=== PATIENT | male | born 1980 | race American Indian/Alaskan Native ===

== ENCOUNTER 2021-03-11 00:21 | Emergency (ER) | payer OTHER ==
[2021-03-11] MEDS ORDERED: Sodium Chloride 0.9% 1,000 ML IV ONE (00:31)
[2021-03-11] MEDS ORDERED: Famotidine 20 MG/2 ML SDV IVPUSH ONE (00:31)
[2021-03-11] MEDS ORDERED: diphenhydrAMINE 50 MG/ML SDV IVPUSH ONE (00:31)
[2021-03-11] MEDS ORDERED: methylPREDNISolone Sodium Succinate 125 MG/2 ML SDV IVPUSH ONE (00:31)
--- NOTE | 2021-03-11 00:46 | EDM.PDOC ---
ED HPI GENERAL MEDICAL PROBLEM - General Stated Complaint: ALERGIC REACTION. ALL OVER THIS BODY Time Seen by Provider: 03/11/21 00:25 Source of Information: Reports: Patient, Family, RN, RN Notes Reviewed History Limitations: Reports: Intoxication - History of Present Illness INITIAL COMMENTS - FREE TEXT/NARRATIVE: Patient is a 40-year-old male who presents to ER with his per POV with complaint of allergic reaction. states patient awoke her a few minutes before midnight stating he was having a rash all over his body. Patient has hives on the extremities upper and lower as well as the abdomen and neck. 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 Also gets "tingly" when he eats male from time to time. Patient did eat macaroni salad today. Denies any drug allergies. Denies shortness of breath, tightness of chest, feeling of throat closing. Patient states he did take 25 mg of children's Benadryl at home because that is what they had. Patient states he feels things are improving. Patient oxygen saturation was 85% on room air upon arrival to the ER. Patient denies smoking cigarettes. Admits to drinking a sixpack of beer on a daily basis. Onset: Today, Sudden - Related Data Allergies Allergy/AdvReac Type Severity Reaction Status Date / Time egg Allergy Anaphylactic Verified 03/11/21 00:55 Shock Home Meds: Home Meds diphenhydrAMINE HCL [Benadryl Allergy] 03/11/21 [History] ED ROS ALLERGIC REACTION - Review of Systems Review Of Systems: Comprehensive ROS is negative, except as noted in HPI. ED EXAM GENERAL NO PERIP PULSE - Physical Exam Exam: See Below Exam Limited By: Intoxication General Appearance: Alert, WD/WN, Mild Distress Eye Exam: Bilateral Eye: EOMI, Normal Inspection Ears: Normal External Exam, Hearing Grossly Normal Nose: Normal Inspection Throat/Mouth: Normal Inspection, Normal Lips, Normal Teeth, Normal Gums, Normal Oropharynx, Normal Voice, No Airway Compromise Head: Atraumatic, Normocephalic Neck: Normal Inspection, Supple, Non-Tender, Full Range of Motion Respiratory/Chest: No Respiratory Distress, Lungs Clear, Normal Breath Sounds, No Accessory Muscle Use, Chest Non-Tender Cardiovascular: Normal Peripheral Pulses, Regular Rate, Rhythm, No Edema, No Gallop, No JVD, No Murmur, No Rub GI/Abdominal: Normal Bowel Sounds, Soft, Non-Tender, No Organomegaly, No Distention, No Abnormal Bruit, No Mass, Pelvis Stable (Male) Exam: Deferred Rectal (Males) Exam: Deferred Back Exam: Normal Inspection, Full Range of Motion, NT Extremities: Normal Inspection, Normal Range of Motion, Non-Tender, Normal Capillary Refill, No Pedal Edema Neurological: Alert, Oriented, Normal Cognition, No Motor/Sensory Deficits Psychiatric: Normal Affect, Normal Mood Skin Exam: Warm, Dry, Other (Hives on the upper and lower extremities, abdomen, neck) Lymphatic: No Adenopathy Course - Vital Signs Last Recorded V/S: Last Vital Signs Temp 96.9 F 03/11/21 00:25 Pulse 75 03/11/21 01:18 Resp 16 03/11/21 01:18 BP 145/95 H 03/11/21 01:18 Pulse Ox 100 03/11/21 01:18 - Orders/Labs/Meds Labs: Laboratory Tests 03/11/21 03/11/21 Range/Units 00:35 00:35 WBC 9.6 (5.0-10.0) 10^3/uL RBC 5.15 (4.6-6.2) 10^6/uL Hgb 17.5 (14.0-18.0) g/dL Hct 49.7 (40.0-54.0) % MCV 96.5 (80-100) fL MCH 34.0 (27.0-34.0) pg MCHC 35.2 H (33.0-35.0) g/dL Plt Count 302 (150-450) 10^3/uL Neut % (Auto) 43.2 (42.2-75.2) % Lymph % (Auto) 43.1 (20.5-50.1) % [place] % (Auto) 11.2 H (2-8) % Eos % (Auto) 1.7 (1.0-3.0) % Baso % (Auto) 0.8 (0.0-1.0) % Sodium 132 L (136-145) mmol/L Potassium 3.5 (3.5-5.1) mmol/L Chloride 96 L (98-107) mmol/L Carbon Dioxide 20 L (21-32) mmol/L Anion Gap 19.5 H (7-13) mEq/L BUN 8 (7-18) mg/dL Creatinine 0.88 (0.70-1.30) mg/dL Est Cr Clr Drug Dosing 116.37 mL/min Estimated GFR (MDRD) > 60 BUN/Creatinine Ratio 9.1 (No establ ref range) Glucose 152 H (70-99) mg/dL Calcium 8.4 L (8.5-10.1) mg/dL Total Bilirubin 0.4 (0.2-1.0) mg/dL AST 29 (15-37) U/L ALT 19 (16-63) U/L Alkaline Phosphatase 52 (46-116) U/L Total Protein 7.4 (6.4-8.2) g/dL Albumin 3.5 (3.4-5.0) g/dL Globulin 3.9 Albumin/Globulin Ratio 0.90 Ethyl Alcohol 182 (0) mg/dL Meds: Medications Discontinued Medications Generic Name Dose Route Start Last Admin Trade Name Freq PRN Reason Stop Dose Admin Diphenhydramine HCl 50 mg 03/11/21 00:31 03/11/21 00:41 Diphenhydramine 50 Mg/Ml Sdv IVPUSH 03/11/21 00:32 50 mg ONETIME ONE Administration Famotidine 20 mg 03/11/21 00:31 03/11/21 00:43 Famotidine 20 Mg/2 Ml Sdv IVPUSH 03/11/21 00:32 20 mg ONETIME ONE Administration Sodium Chloride 1,000 mls @ 999 mls/hr 03/11/21 00:31 03/11/21 00:43 Normal Saline IV 03/11/21 01:31 999 mls/hr .BOLUS ONE Administration Methylprednisolone Sodium Succinate 125 mg 03/11/21 00:31 03/11/21 00:41 Methylprednisolone Sodium Succinate 125 Mg/2 Ml Sdv IVPUSH 03/11/21 00:32 125 mg ONETIME ONE Administration Departure - Departure Time of Disposition: 02:23 Disposition: Home, Self-Care 01 Condition: Good Clinical Impression: Full body hives Allergic reaction Qualifiers: Encounter type: initial encounter Qualified Code(s): T78.40XA - Allergy, unspecified, initial encounter - Discharge Information *PRESCRIPTION DRUG MONITORING PROGRAM REVIEWED*: No *COPY OF PRESCRIPTION DRUG MONITORING REPORT IN PATIENT MINA: No Instructions: Allergies, Adult, [id number], Anaphylactic Reaction, Adult, Hives, [id number], Rash, Adult, [id number] Forms: ED Department Discharge Additional Instructions: Stay away from eggs and mayonnaise altogether Drink plenty of water May use Benadryl as directed for hives and itching Rx: Prednisone 40 mg orally once daily for 4 more days Return to the ER with any worsening of problems i.e. shortness of breath, swelling of the lips, face, throat Follow-up with your primary care provider in the clinic this week RX: Epipen autoinjector Sepsis Event Note (ED) - Focused Exam Vital Signs: Vital Signs Temp Pulse Resp BP Pulse Ox 03/11/21 01:18 75 16 145/95 H 100 03/11/21 00:25 96.9 F 90 18 102/66 85 L
[2021-03-11 01:07] LABS: ANION GAP 19.5 mEq/L (7-13); CHLORIDE,CL 96 mmol/L (98-107); SODIUM,NA 132 mmol/L (136-145)
== END 2021-03-11 02:34 | disposition home or self-care (01) ==
LOC: DL.ED 00:21
DX: L50.0 Allergic urticaria (principal); Z91.012 Allergy to eggs
CPT/HCPCS: 36415; 80053; 80307; 85025; 96374; 96375; 99283; J1200; J2930; J3490; J7030

== ENCOUNTER 2021-07-24 16:17 | Emergency (ER) | payer OTHER ==
[2021-07-24 18:43] LABS: CORONAVIRUS COVID-19 NAA NEGATIVE (NEGATIVE)
== END 2021-07-24 19:15 | disposition left against medical advice (07) ==
LOC: DL.ED 16:17
DX: Z20.822 Contact with and (suspected) exposure to COVID-19 (principal); Z53.21 Procedure and treatment not carried out due to patient leaving prior to being seen by health care provider
CPT/HCPCS: 0240U

== ENCOUNTER 2022-03-22 14:02 | Emergency (ER) | payer OTHER ==
[~2022-03-22 14:02] MED LIST: Diphtheria,Pertussis(Acell),Tetanus Vaccine 0.5 ML Syringe IM ONE; Lidocaine 1% 5 ML VIAL INJECT ONE; Lidocaine 1% 5 ML VIAL ONE
[2022-03-22] MEDS ORDERED: MVI, Adult with Vitamin K 10 ML, Folic Acid 1 MG, Thiamine 100 MG in Lactated Ringers 1... IV ONE ×4 (14:26)
[2022-03-22 14:39] LABS: ANION GAP 19.3 mEq/L (7-13)
[2022-03-22 15:14] LABS: AMPHETAMINES,URINE NEGATIVE (NEGATIVE); BARBITURATES,URINE NEGATIVE (NEGATIVE); BENZODIAZEPINE,URINE NEGATIVE (NEGATIVE); MDMA (ECSTASY), URINE NEGATIVE (NEGATIVE); METHADONE,URINE NEGATIVE (NEGATIVE); METHAMPHETAMINES,URINE NEGATIVE (NEGATIVE); OPIATES,URINE NEGATIVE (NEGATIVE); OXYCODONE,URINE NEGATIVE (NEGATIVE); PHENCYCLIDINE,URINE NEGATIVE (NEGATIVE); TCA,URINE NEGATIVE (NEGATIVE)
== END 2022-03-22 17:47 ==
LOC: DL.ED 14:02
DX: S01.81XA Laceration without foreign body of other part of head, initial encounter (principal); I10 Essential (primary) hypertension; K21.9 Gastro-esophageal reflux disease without esophagitis; F10.10 Alcohol abuse, uncomplicated; Z91.012 Allergy to eggs; Z79.899 Other long term (current) drug therapy; Z23 Encounter for immunization; Y90.8 Blood alcohol level of 240 mg/100 ml or more; W26.8XXA Contact with other sharp object(s), not elsewhere classified, initial encounter; Y92.009 Unspecified place in unspecified non-institutional (private) residence as the place of occurrence of the external cause
CPT/HCPCS: 12011; 36415; 80053; 80143; 80179; 80305-QW; 80307; 81003; 83735; 85025; 90471; 90715; 96365; 96366; 99283; 99283-25; J3411; J3490; J7120